=== PATIENT | male | born 1960 | race Caucasian/White ===

== ENCOUNTER 2023-09-03 07:45 | Outpatient (CLI) | payer OTHER, SELFPAY ==
--- OUTSIDE RECORDS SUMMARY | 2023-09-03 13:26 | XMS_ITS | Clinical Summary ---
Author Name Unknown Organization [facility] Address [place], [place] [address] Care Team Providers Care Tension Machine Operator Name Role Phone Pcp, No Primary Care Provider Unavailabl e Allergies No known active allergies Medications Medication Sig Dispensed Refills Start Date End Date Status ONETOUCH VERIO SYSTEM USE DIRECTED 0 03/13/2017 Active ONE TOUCH DELICA 33 gauge miscIndications:Type 2 diabetes mellitus without complication, unspecified alf insulin use status Dispense item covered by pt ins. E11.9 NIDDM type II - Test 1 time/day 90 Each 5 04/09/2017 Active ONETOUCH VERIO stripIndications:Type 2 diabetes mellitus without complication, unspecified alf insulin use status Dispense item covered by pt ins. E11.9 NIDDM type II - Test 1 time/day 90 Strip 5 04/09/2017 Active atorvastatin (LIPITOR) 80 mg tabletIndications:Hyperli pidemia, unspecified hyperlipidemia type Take 1 tablet by mouth once daily. 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 90 tablet 0 09/19/2019 Active glimepiride (AMARYL) 2 mg tablet TAKE 1 TABLET BY MOUTH ONCE DAILY WITH BREAKFAST 0 12/17/2019 Active sildenafil citrate (Viagra) 100 mg tabletIndications:Erectil e dysfunction, unspecified erectile dysfunction type Take 1 Tablet (100 mg) by mouth once daily if needed for Erectile Dysfunction. Take 30min to 4 hours before sexual activity. Max 100mg/24hr. 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 30 Tablet 0 12/28/2020 Active metoprolol succinate (TOPROL XL) 50 mg sustained-release tablet once daily. 0 09/13/2019 Active ezetimibe (Zetia) 10 mg tabletIndications:Pure hypercholesterolemia Take 1 Tablet (10 mg) by mouth once daily. 90 Tablet 3 02/13/2023 Active Social History Tobacco Use Types Packs/Day Years Used Date Smoking Tobacco: Never Smokeless Tobacco: Never Alcohol Use Standard Drinks/Week Comments Yes 0 (1 standard drink = 0.6 oz pur e alcohol) socially Social Connections Answer Date Recorded Frequency of Communication with Friends and Fami ly Not on file 02/13/2023 Sex and Gender Information Value Date Recorded Sex Assigned at Not on file Gender Identity Not on file Sexual Orientation Not on file Obstetrics History Last Filed Vital Signs Vital Sign Reading Time Taken Comments Blood Pressure 128/82 02/13/2023 10:19 AM CDT Pulse 67 02/13/2023 10:19 AM CDT Temperature - - Respiratory Rate 14 02/13/2023 10:19 AM CDT Oxygen Saturation 98% 12/03/2020 3:09 PM CDT Inhaled Oxygen Concentration - - Weight 103.9 kg (229 lb) 02/13/2023 10:19 AM CDT Height 177.8 cm (5' 10) 02/02/2018 8:09 AM CDT Body Mass Index 32.86 02/02/2018 8:09 AM CDT Plan of Treatment Health Maintenance Due Date Last Done Comments Tdap 1972 Depression screening for age 12+ 1973 HIV for age 15-65 1976 Hepatitis C screening for ag e 18-79 09/21/1979 Tetanus booster 1981 Colonoscopy through age 75 2006 Lipids for age 45-75 2006 Zoster (shingles) series for age 50+ (1 of 2) 09/21/2011 BMI (ht and wt on same day) for age 18+ 02/02/2019 02/02/2018, 04/09/2017 COVID-19 vaccine series ( season) 2023 07/04/2021, 10/27/2020, 10/06/2020 Influenza for age 50-64 03/20/2023 Pneumococcal series for age 6-64 Aged Out No longer eligible b ased on patient's age to complete this topic Care Teams Tension Machine Operator Relationship Specialty Start Date End Date Pcp, No . PCP - General 03/12/17
== END 2023-09-03 07:46 | disposition home or self-care (01) ==
LOC: NFLDREF 13:24
PROVIDERS: PCP Internal Medicine; Referring Provider Internal Medicine; Visit Provider Internal Medicine
DX: E11.9 Type 2 diabetes mellitus without complications (principal); I10 Essential (primary) hypertension; I25.10 Atherosclerotic heart disease of native coronary artery without angina pectoris
CPT/HCPCS: 80053; 80061

== ENCOUNTER 2023-10-22 07:35 | Outpatient (CLI) | payer OTHER, SELFPAY | END 2023-10-22 07:36 | disposition home or self-care (01) | LOC: NFLDREF 14:30 | PROVIDERS: PCP Internal Medicine; Referring Provider Internal Medicine; Visit Provider Internal Medicine | DX: E11.9 Type 2 diabetes mellitus without complications (principal); Z12.5 Encounter for screening for malignant neoplasm of prostate; I10 Essential (primary) hypertension | CPT/HCPCS: 80053; 80061; 82043; 82570; G0103 ==

== ENCOUNTER 2024-11-14 08:00 | Outpatient (CLI) | payer OTHER, SELFPAY | END 2024-11-14 08:01 | disposition home or self-care (01) | LOC: NFLDREF 11-15 21:48 | PROVIDERS: PCP Internal Medicine; Referring Provider Internal Medicine; Visit Provider Internal Medicine | DX: I10 Essential (primary) hypertension (principal); E11.9 Type 2 diabetes mellitus without complications; Z12.5 Encounter for screening for malignant neoplasm of prostate | CPT/HCPCS: 80053; 80061; 82043; 82570; G0103 ==